=== PATIENT | male | born 1965 | race Caucasian/White ===

== ENCOUNTER 2016-12-16 13:34 | Inpatient (IN) | payer OTHER ==
[~2016-12-16] VITALS: Ht 175.3 cm; Wt 97.5 kg
[2016-12-16] MEDS ORDERED: SYNTHROID0.088 MG/T PO (14:09)
[2016-12-16] MEDS ORDERED: CELEBREX 200MG200 MG PO (14:10)
[2016-12-16 14:14] VITALS: BP 124/93; PULSE 66
[2016-12-16] MEDS ORDERED: NEURONTIN300 MG/CAP PO (14:14)
[2016-12-16 14:29] VITALS: BP 116/67; PULSE 54
[2016-12-16 14:36] VITALS: BP 143/93; PULSE 68; TEMP 97.8
[2016-12-16 14:44] VITALS: BP 127/71; PULSE 56
[2016-12-16 15:00] VITALS: BP 118/78; PULSE 49
[2016-12-16 22:08] VITALS: BP 123/69; PULSE 59; TEMP 98
[2016-12-17 02:39] VITALS: BP 116/53; PULSE 52; TEMP 98.7
[2016-12-17 05:30] VITALS: BP 107/65; PULSE 50; TEMP 97.8
[2016-12-17 10:23] VITALS: BP 113/77; PULSE 42; TEMP 98.6
[2016-12-17 13:50] VITALS: BP 109/79; PULSE 75; TEMP 98.9
== END 2016-12-17 16:01 | disposition home or self-care (01) | DRG 670 ==
LOC: JCC 13:34
PROVIDERS: Urology
PROC: 0TC68ZZ Extirpation of Matter from Right Ureter, Via Natural or Artificial Opening Endoscopic (ICD-10-PCS; principal; 2016-12-17 11:00)
PROC: 0T768DZ Dilation of Right Ureter with Intraluminal Device, Via Natural or Artificial Opening Endoscopic (ICD-10-PCS; 2016-12-17 11:00)
DX: N20.1 Calculus of ureter (principal); E03.9 Hypothyroidism, unspecified
CPT/HCPCS: C1769; C2617; J0461; J0690; J1100; J1885; J2270; J2405; J2704; J3010; J7030; Q9967

== ENCOUNTER 2019-04-15 06:44 | Outpatient (CLI) | payer OTHER ==
[~2019-04-15] VITALS: Ht 175.3 cm; Wt 102.0 kg
[~2019-04-15 06:44] MED LIST: CALCIUM 600MG+D1 TAB PO; CELEBREX 200MG200 MG PO; CRANBERRY 100 M1 SGL PO; DESYREL 50MG50 MG PO; LEVOXYL0.125 MG PO; LIPITOR 10MG10 MG PO; MELATONIN5 M1 PO; MULTI VITAMINS1 TAB PO; NEURONTIN300 MG/CAP PO; PRILOSEC 20MG20 MG PO; SYNTHROID0.088 MG/T PO; UBIQUINOL100 MG PO; VITAMIND3 5000 PO
[2019-04-15 07:06] VITALS: BP 147/97; PULSE 53
[2019-04-15 07:45] VITALS: BP 129/93; PULSE 45
[2019-04-15 08:25] LABS: GLUCOSE,CSF 52 mg/dL (40-70); TOTAL PROTEIN,CSF 38 mg/dL (15-45)
[2019-04-15 09:10] VITALS: PULSE 80
[2019-04-15 09:15] VITALS: BP 125/79; PULSE 88
[2019-04-15 09:33] LABS: CSF APPEARANCE CLEAR; CSF COLOR COLORLESS; CSF POLYMORPHONUCLEAR 0 % (0-6); CSF RBC 17 /mm3 (0-0)
[2019-04-15 09:34] LABS: CSF MONONUCLEAR 100 % (70-100)
[2019-04-18 13:34] LABS: ALBUMIN CSF 23.7 mg/dL (<=27.0)
[2019-04-18 14:20] LABS: CSF IGG/ALBUMIN 0.14 (<=0.21); CSF,IGG 3.2 mg/dL (<=8.1)
[2019-04-18 15:29] LABS: CSF SYNTHESIS RATE 0.28 mg/24 h (<=12); CSF-IGG INDEX 0.52 (<=0.85); IGG/ALBUMIN SERUM 0.27 (<=0.40)
== END 2019-04-15 09:30 | disposition home or self-care (01) ==
LOC: COL.RAD 06:44
PROVIDERS: Psychiatry & Neurology Neurology
DX: G37.9 Demyelinating disease of central nervous system, unspecified (principal)